=== PATIENT | female | born 1990 | race Caucasian/White ===

== ENCOUNTER → 2016-12-19 | Day surgery (SDC) | payer BC ==
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
[~2016-12-19] VITALS: Ht 165.1 cm; Wt 61.9 kg
[~2016-12-19] MED LIST: ACETAMINOPHEN 1000 MG/100 ML VIAL IV PRN; CHLORHEXIDINE GLUCONATE 2 % 1 PACK (2 CLOTHS) TOPICAL PRN; DEXAMETHASONE SOD PHOS 4 MG/ML VIAL ONE; DO NOT ADM ANY ANTICOAGULANT DRUGS PRN; FAMOTIDINE 20 MG/2 ML VIAL IV ONE; INSULIN HUMAN REGULAR 1,000 UNITS/10 ML VIAL SQ PRN; KETOROLAC TROMETHAMINE 30 MG/ML (IVP) VIAL IV PUSH SCH; KETOROLAC TROMETHAMINE 60 MG/2 ML (IM) VIAL IM ONE; LACTATED RINGER'S 1000 ML IV PRN; METOCLOPRAMIDE HCL 10 MG/2 ML VIAL IV PRN; METOPROLOL TARTRATE 25 MG TAB PO PRN; MIDAZOLAM HCL 2 MG/2 ML VIAL ONE; ONDANSETRON HCL 4 MG/2 ML VIAL IV PUSH ONE; OXYTOCIN 10 UNIT/ML AMP ONE; POVIDONE IODINE 5% (ANTISEPSIS KIT) 4 APPLICATIONS EACH NARE PRN; PROPOFOL 200 MG/20 ML AMP IV ONE; SODIUM CHLORID 0.9% 500 ML IV PRN; ceFAZolin 1,000 MG/NS 100 ML IV SCH
[2016-12-19 06:40] LABS: BACTERIA, URINE RARE /hpf; BLOOD, URINE SMALL (NEG); COMMENT (UR) CULT NOT INDICATED; CULTURE IF INDICATED CULT NOT INDICATED; GLUCOSE,URINE NEG (NEG); KETONE, URINE NEG (NEG); MUCUS URINE FEW /lpf (OCC); NITRITE,URINE NEG (NEG); SQUAMOUS EPITHELIAL CELL URINE 2 /hpf (0-5); URINE COLOR YELLOW (YELLW/STRAW)
[2016-12-19 06:51] LABS: AUTOMATED NEUTROPHIL # 3.8 TH/MM3 (1.8-7.7); BASOPHIL % 0.2 % (0.0-2.0); EOSINOPHIL # 0.1 TH/MM3 (0-0.4); EOSINOPHIL % 2.3 % (0.0-4.0); HEMATOCRIT 35.1 % (35.0-46.0); HEMO FLAGS DIFF FINAL; LYMPH % 26.1 % (9.0-44.0); LYMPHOCYTE # 1.6 TH/MM3 (1.0-4.8); MEAN CELL VOLUME 89.6 FL (80.0-100.0); MEAN CORPUSCULAR HEMOGLOBIN 30.1 PG (27.0-34.0); MEAN CORPUSCULAR HGB CONC 33.6 % (32.0-36.0); MONO % 9.3 % (0.0-8.0); NEUT % 62.1 % (16.0-70.0); PLATELET COUNT 242 TH/MM3 (150-450); RED BLOOD COUNT 3.92 MIL/MM3 (4.00-5.30); RED CELL DISTRIBUTION WIDTH 12.9 % (11.6-17.2); WHITE BLOOD COUNT 6.1 TH/MM3 (4.0-11.0)
--- NOTE | 2016-12-19 08:29 | MP ---
cc: MANUELITO RODRIGUEZ DATE OF SURGERY 12/19/2016 PREOPERATIVE DIAGNOSIS Spontaneous with demise 8 weeks gestation. POSTOPERATIVE DIAGNOSIS Spontaneous with demise 8 weeks gestation. PROCEDURE Suction and sharp D&C. ANESTHESIA General LMA ESTIMATED BLOOD LOSS About 200 cc FLUIDS 300 cc crystalloid OBJECTIVE FINDINGS Following induction of adequate general LMA anesthesia, the patient was prepped and draped supine on the operating table in the dorsolithotomy position in the usual sterile fashion with the bladder being drained via void prior to the procedure. Exam under anesthesia revealed an 8 weeks' size anterior uterus with no adnexal masses. A heavy weighted speculum was placed in the posterior fornix of the vagina. The anterior lip of the cervix grasped with a single-toothed tenaculum. The cervix and uterus sounded to 8 cm with a soft dilator and dilated with a #18 Hanks dilator. A #8 suction curette was passed to remove POC-like material followed by a small sharp curette to dislodge adherent tissue and suction catheter passed again to picker and sorter load and unload loose tissue and debris. The cervical tenaculum site was then sutured with 3-0 chromic. Exam revealed a 6-week sized uterus well contracted with normal postprocedure bleeding. All instruments removed, all counts correct. The patient's legs taken out of the stirrups and she was awakened and taken to the recovery room in good condition. MD CLARKE Moreno/SAMMY /7:58 AM /8:21 AM
[2016-12-19 09:35] VITALS: BP 106/62; PULSE 67; RESP 18; O2SAT 100
== END | disposition home or self-care (01) ==
LOC: HSDC 05:32
PROVIDERS: ATTEND Obstetrics & Gynecology
DX: O03.4 Incomplete spontaneous abortion without complication (principal)
CPT/HCPCS: 01965; 59812; 81001; 85025; 86850; 86900; 86901; 88233; 88264; 88280; 88305; J0131; J0690; J1100; J1885; J2250; J2405; J2590; J3010; J7120